=== PATIENT | female | born 2000 | race Native Hawaiian/Other Pacific Islander ===

== ENCOUNTER 2020-02-07 21:22 | Inpatient (IN) | payer OTHER ==
[~2020-02-07] VITALS: Ht 144.8 cm; Wt 39.9 kg
[2020-02-07] MEDS: OLANZapine ORAL DISINTEGRATING TAB 5MG PO SCH (21:00)
[2020-02-07] MEDS ORDERED: MOM 30ML SUSPENSION UDC PO PRN (23:45)
[2020-02-07] MEDS ORDERED: ACETAMINOPHEN TAB 650MG DOSE (2X325MG) PO PRN (23:45)
[2020-02-07] MEDS ORDERED: MAALOX 30 ML SUSP *UDC PO PRN (23:45)
[2020-02-08 02:34] VITALS: BP 114/63
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
[2020-02-08 15:15] LABS: HEMATOCRIT 38.9 % (36.0-47.0); MEAN CORPUSCULAR HEMOGLOBIN 28.7 pg (27.0-33.0); MEAN CORPUSCULAR HGB CONC 33.4 g/dl (32.0-36.5); MEAN CORPUSCULAR VOLUME 85.9 fl (80.0-96.0); PLATELET COUNT, AUTOMATED 264 10^3/uL (150-450); RED BLOOD COUNT 4.53 10^6/uL (4.00-5.40); WHITE BLOOD COUNT 6.7 10^3/uL (4.0-10.0)
[2020-02-08 15:35] LABS: ALBUMIN 3.8 GM/DL (3.2-5.2); ALT/SGPT 20 U/L (12-78); BILIRUBIN,TOTAL 0.4 MG/DL (0.2-1.0); BLOOD UREA NITROGEN 5 MG/DL (7-18); CALCIUM LEVEL 8.7 MG/DL (8.5-10.1); CARBON DIOXIDE LEVEL 29 MEQ/L (21-32); CHLORIDE LEVEL 104 MEQ/L (98-107); CREATININE FOR GFR 0.62 MG/DL (0.55-1.30); GLUCOSE, FASTING 80 MG/DL (70-100); POTASSIUM SERUM 3.6 MEQ/L (3.5-5.1); SODIUM LEVEL 141 MEQ/L (136-145); TOTAL PROTEIN 7.7 GM/DL (6.4-8.2)
[2020-02-08 15:53] VITALS: BP 113/56
[2020-02-08] MEDS: OLANZapine ORAL DISINTEGRATING TAB 5MG PO SCH (22:21)
[2020-02-09 06:37] VITALS: BP 96/58
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
[2020-02-09] MEDS: ARIPiprazole 2 MG TAB PO SCH (15:28)
[2020-02-09 16:37] VITALS: BP 109/71
[2020-02-09 18:11] LABS: CHLAMYDIA DNA AMPLIFICATION POSITIVE (NEGATIVE); GC DNA AMPLIFICATION NEGATIVE (NEGATIVE)
--- NOTE | 2020-02-09 19:04 | IPNPDOC ---
Date Seen The patient was seen on 02/09/20. Progress Note SUBJECTIVE: Patient's UA neg; however, had continued burning with urination. Patient admits to her boyfriend not being monogamous and so the risk for STD is present. Checked GC and trichomonas in urine. + for chlamydia. Treating with one time dose of azithromycin 1 gm PO. VS, I&O, 24H, Fishbone Vital Signs/I&O Vital Signs Date Time Temp Pulse Resp B/P (MAP) Pulse Ox O2 Delivery O2 Flow Rate FiO2 02/09/20 16:37 98.8 89 16 109/71 (84) 02/09/20 06:37 100 Room Air Laboratory Data 24H LABS Laboratory Tests 2 02/09/20 15:30: Chlamydia trachomatis DNA (MARY JO) POSITIVEH, Neisseria gonorrhoeae DNA (MARY JO) NEGATIVE, Trichomonas vaginalis (PCR) NOT DETECTED Microbiology Microbiology 02/08/20 Urine Culture - Final, Complete Coco Beal MD Feb 09, 2020 19:04
[2020-02-09] MEDS ORDERED: AZITHROMYCIN 250MG TABLET PO ONE (20:00)
--- NOTE | 2020-02-09 20:59 | MHIPN ---
DATE: 02/09/2020 The patient is seen via telepsychiatry due to current coronavirus crisis. Today, the patient tells me that she is feeling "better." She tells me that she was feeling very anxious yesterday in the unit because other patients were saying that they wanted to leave because they were afraid that they were going to get hurt because there were some patients that were agitated on the unit. The patient continues to minimize her psychotic symptoms, but she also describes that she had been having increased energy, pressured speech, flight of ideas. She does have a history of depression in the past, and I think it is possible that maybe what she has been having is a manic episode. MENTAL STATUS EXAM: This patient is alert and oriented times three. Eye contact is fair. Psychomotor activity is normal. There is a mild pressured speech. I did not elicit any suicidal or homicidal ideations. The patient, I believe, still has some mild paranoid thoughts. There is no formal thought disorder noted. Her concentration is fair. Memory intact. She is not homicidal or suicidal. Concentration is fair. Insight and judgment is fair. DIAGNOSIS: Bipolar disorder. TREATMENT PLAN: We will continue to monitor for continued resolution of psychotic symptoms and we will continue to titrate medications as needed. THOMASD
[2020-02-09] MEDS: traZODone 50 MG TAB PO PRN (21:08)
[2020-02-10 06:41] VITALS: BP 113/56
[2020-02-10] MEDS: ARIPiprazole 2 MG TAB PO SCH (08:26)
[2020-02-10 16:27] VITALS: BP 118/56
[2020-02-11] MEDS: traZODone 50 MG TAB PO PRN (01:08)
[2020-02-11 06:26] VITALS: BP 111/58
[2020-02-11] MEDS: ARIPiprazole 2 MG TAB PO SCH ×2 (08:27→20:21)
--- NOTE | 2020-02-11 09:23 | MHIPNPDOC ---
[facility] Progress Note Progress Note DATE OF SERVICE: 02/11/20 HPI: Jessica presents today for a follow-up on her medications. She denies having any shakiness, jitteriness, and tremors besides when she is cold. She also denies having any suicidal thoughts, homicidal thoughts, and hearing voices. She mentions having bowel changes. She is sometimes constipated due to Abilify. MEDICATIONS: She is currently taking Abilify and states that it is helping. However, the medication makes her drowsy during the day so she is requesting to change the time she takes the medication to night time. She mentions that she takes naps more frequently during the day and would rather sleep better at night instead. The Abilify is stabilizing her anxiety and compulsions. She notices changes in her responses to others. Objective Appearance: Well groomed. Well nourished. Speech: pressured speech. mildly psychotic. Cognition: grossly intact with some problems in concentration and secondary to thought process. Thought Form: generally linear although tangential at times. Judgement: poor. Insight: poor. Assessment F41.9 Anxiety disorder, unspecified F31.0 Bipolar disorder, current episode hypomanic Plan She is a 19-year-old woman with a history of likely bipolar disorder. She is currently being treated with Abilify and I will move the Abilify 2 mg to night. Ideally, I would like to increase but we will see how she responds to the low dose at night to stabilize her sleep. She is still quite distorted per nursing staff, especially with sexual preoccupations. She will likely need further inpatient admission. Vital Signs Vital Signs Date Time Temp Pulse Resp B/P (MAP) Pulse Ox O2 Delivery O2 Flow Rate FiO2 02/11/20 06:26 97.7 90 12 111/58 (75) Room Air 02/09/20 06:37 100 Current Medications Current Medications Medications (Trade) Dose Ordered Sig/Roxane Route PRN Reason Start Time Stop Time Status Last Admin Dose Admin Acetaminophen (Tylenol Tab) 650 mg Q6HP PRN PO HEADACHE or DISCOMFORT 02/07/20 23:45 Al Hydrox/Mg Hydrox/Simethicone (Mylanta) 30 ml Q4HP PRN PO HEARTBURN/INDIGESTION 02/07/20 23:45 Aripiprazole (AbiLIFY) 2 mg DAILY PO 02/09/20 09:00 02/11/20 08:27 Home Med (Med Rec Complete!) ASDIRECTED XX 02/07/20 23:30 02/07/20 23:29 DC Magnesium Hydroxide (Milk Of Magnesia) 30 ml DAILYPRN PRN PO CONSTIPATION 02/07/20 23:45 Olanzapine (ZyPREXA ZYDIS) 10 mg QHS PO 02/07/20 21:00 02/09/20 14:59 DC 02/08/20 22:21 Trazodone HCl (Desyrel) 50 mg QHSP PRN PO INSOMNIA 02/07/20 23:45 02/11/20 01:08 Allergies Coded Allergies: No Known Allergies (Unverified , 02/07/20) JOSELINE PARRY DO Feb 11, 2020 09:22
[2020-02-11] MEDS ORDERED: SENNA 8.6 MG TAB (SENOKOT) PO PRN (10:15)
--- NOTE | 2020-02-11 15:20 | MHIPN ---
DATE: 02/10/2020 The patient is seen via telepsychiatry due to the current coronavirus crisis. The patient today tells me that she is doing good. She says she slept good. She says that she is feeling less anxious today. She said some of the other patients are still saying that they are afraid to be in the unit, that they are afraid that they are going to get killed. She says that she recognizes that other patients have their own problems that they are dealing with. She really feels that the Abilify is helping stabilize her thoughts. MENTAL STATUS EXAMINATION: She is alert and oriented times three. Eye contact is fairly good. She is verbally spontaneous. There is no formal thought disorder noted. Mood is "better." Affect full range and appropriate to mood. She is not suicidal, homicidal. I am not eliciting any delusions today. Concentration is fair, memory intact. Insight and judgment good DIAGNOSES: 1. Bipolar disorder. 2. Posttraumatic stress disorder. 3. Cannabis use disorder, severe. TREATMENT PLAN: At this point, we will continue to monitor the patient for continued resolution of her psychotic symptoms and stabilization of her mood. We will continue the current medications, and we will continue to titrate her Abilify as needed. ZULEYKA
[2020-02-11 16:27] VITALS: BP 116/62
[2020-02-11] MEDS ORDERED: ARIPiprazole 2 MG TAB PO SCH (21:00)
[2020-02-12] MEDS: traZODone 50 MG TAB PO PRN ×2 (01:56→20:46)
[2020-02-12 06:19] VITALS: BP 123/66
--- NOTE | 2020-02-12 09:47 | MHIPNPDOC ---
[facility] Progress Note Progress Note DATE OF SERVICE: 02/12/20 HPI: Jessica presents today for concerns regarding her follow up. Jessica denies any suicidal thoughts or homicidal thoughts as well as any hallucinations. Jessica is open to getting discharged tomorrow.staff report the patient is euthymic without any signs of psychosis at this time. MEDICATIONS: She is taking abilify. She likes it at night, and she does not feel as groggy as she would if she takes it in the morning. She does feel like her body is sore. Objective Appearance: Well groomed. Well nourished. Behavior: Engaged. Cooperative with good eye contact. Pleasant. Affect: Full range. Appropriate to context. Mood: Generally good. Appropriately reactive. Euthymic. Speech: Normal volume. Normal rate. Motor: No gross motor abnormalities. Cognition: Alert, Attentive, and Oriented to person, place, time. Memory: No gross abnormalities of short or long term acute care registered nurse memory noted during interview. No formal testing. Thought Form: Linear and goal directed. Thought Content: No thoughts of self harm. No evidence of aggressive or homicidal ideation. No evidence of suicidal ideation. No evidence of delusions. Perception: No perceptual abnormalities noted. Judgement: intact as evidenced by decision making in the recent past. Insight: good insight into symptoms and treatment options. Assessment F31.72 Bipolar disorder, in full remission, most recent episode hypomanic F43.10 Post-traumatic stress disorder, unspecified F12.90 Cannabis use, unspecified, uncomplicated Plan Continue abilify 5 mg. At this time patient will be discharged tomorrow patient is doing well and making stronger progress Vital Signs Vital Signs Date Time Temp Pulse Resp B/P (MAP) Pulse Ox O2 Delivery O2 Flow Rate FiO2 02/12/20 06:19 97.8 95 12 123/66 (85) Room Air 02/09/20 06:37 100 Current Medications Current Medications Medications (Trade) Dose Ordered Sig/Roxane Route PRN Reason Start Time Stop Time Status Last Admin Dose Admin Acetaminophen (Tylenol Tab) 650 mg Q6HP PRN PO HEADACHE or DISCOMFORT 02/07/20 23:45 Al Hydrox/Mg Hydrox/Simethicone (Mylanta) 30 ml Q4HP PRN PO HEARTBURN/INDIGESTION 02/07/20 23:45 Aripiprazole (AbiLIFY) 2 mg DAILY PO 02/09/20 09:00 02/11/20 10:11 DC 02/11/20 08:27 Aripiprazole (AbiLIFY) 2 mg QHS PO 02/11/20 21:00 02/11/20 20:21 Aripiprazole (AbiLIFY) 5 mg QHS PO 02/11/20 21:00 02/11/20 10:13 DC Home Med (Med Rec Complete!) ASDIRECTED XX 02/07/20 23:30 02/07/20 23:29 DC Magnesium Hydroxide (Milk Of Magnesia) 30 ml DAILYPRN PRN PO CONSTIPATION 02/07/20 23:45 Olanzapine (ZyPREXA ZYDIS) 10 mg QHS PO 02/07/20 21:00 02/09/20 14:59 DC 02/08/20 22:21 Senna (Senokot) 1 tab DAILYPRN PRN PO CONSTIPATION 02/11/20 10:15 Trazodone HCl (Desyrel) 50 mg QHSP PRN PO INSOMNIA 02/07/20 23:45 02/12/20 01:56 Allergies Coded Allergies: No Known Allergies (Unverified , 02/07/20) JOSELINE PARRY DO Feb 12, 2020 09:47
[2020-02-12 16:30] VITALS: BP 120/73
[2020-02-12] MEDS: ARIPiprazole 2 MG TAB PO SCH (20:46)
[2020-02-13 06:44] VITALS: BP 114/63
--- NOTE | 2020-02-13 09:23 | MHDSPDOC ---
[facility] Discharge Summary Discharge Summary DATE OF ADMISSION: Feb 07, 2020 at 23:43 DATE OF DISCHARGE: Feb 13, 2020 at 13:09 DISCHARGE DIAGNOSES: See Problem list below REASON FOR ADMISSION: 19-year-old woman admitted for bizarre and psychotic symptoms CONSULTANTS INVOLVED:[ None (basic hospitalist screening)] TREATMENT AND PROGRESS ON THE UNIT : Medication changes: start on Abilify 2 mg nightly with positive effects, bizarreness and paranoia vanished quite quickly Behavior on unit: initially bizarre but became more friendly and amenable Treatment attendance: attended well as she improved Notable issues on presentation: none State on discharge: [improved] DISCHARGE ASSESSMENT: The patient a 19 year old woman, with likely initial psychotic episode, presented to [facility], where they a treated with appropriate agent and resolved well. Legal status considerations: The patient at the time of discharge did not meet criteria for involuntary admission/extension due to having a [normal] mental status exam, [fair] insight into the situation, They are engaged in the discharge process, as well as being friendly and amenable in behavioral control and havent been engaging in any observed concerning behavior or ideation recently. They decline voluntary extension/admission at this time and must be discharged in [place], as Im unable to make a case for holding the patient against their will. They may have historical risk factors of admissions and other interactions with psychiatry however, those are not modifiable from a clinical perspective. The patient will need to be discharged in [place]. MENTAL STATUS EXAMINATION ON DISCHARGE: [General: Well dressed with good hygiene Speech: Spontaneous and fluid Thought processes: Linear and logical Thought content: Future orientated Abstract reasoning, and computation: Intact Description of associations: Intact Description of abnormal or psychotic thoughts:Denies any suicidal or homicidal ideation. Denies any auditory or visual hallucinations. Does not appear to be responding to internal stimuli. Does not appear to be endorsing any bizarre or paranoid ideation. Judgment: fair Insight: fair Orientation: Alert and orientated 3 Recent and remote memory: Intact Attention span and concentration: Intact Fund of knowledge: Adequate Mood: "okay" Affect: Euthymic with a full range] PLAN/FOLLOWUP ARRANGEMENTS: Follow up appointments made (PCP and MH in 5 days of D/C date) and safety plan completed. Safety Planning aspects completed prior to discharge [Medication supplies limited to 7 days with 4 refills to prevent accumulation to OD] [Family contact completed, educated on safe practices, instructed on removal and mitigation of dangerous means] [RN reviewed crisis hotline information and other aspects to empower patient to access care in interim before next appointment.] The amount of time spent in the coordination of care for this patient was approximately 30 minutes. Vital Signs/I&Os Vital Signs Date Time Temp Pulse Resp B/P (MAP) Pulse Ox O2 Delivery O2 Flow Rate FiO2 02/13/20 06:44 97.7 97 16 114/63 (80) 100 Room Air Laboratory Data Microbiology Microbiology 02/08/20 Urine Culture - Final, Complete Medications Scheduled Aripiprazole (Abilify) 2 Mg Tablet, 2 MG PO QHS for mood for 7 Days, #7 Allergies Coded Allergies: No Known Allergies (Unverified , 02/07/20) Problems (1) Psychotic disorder Status: Resolved Plan / VTE VTE Prophylaxis Ordered?: No JOSELINE PARRY DO Feb 13, 2020 09:23
[2020-02-13] MEDS ORDERED: ABIL1TAB13 PO (09:48)
== END 2020-02-13 13:09 | disposition home or self-care (01) | DRG 751 ==
LOC: M ED 21:22 → M ED INP 23:43 → M PSY 02-08 02:31
PROVIDERS: ADMIT Psychiatry & Neurology Psychiatry; ATTEND Psychiatry & Neurology Addiction Medicine
DX: F29 Unspecified psychosis not due to a substance or known physiological condition (principal); R45.851 Suicidal ideations; F41.9 Anxiety disorder, unspecified; R30.0 Dysuria; A56.8 Sexually transmitted chlamydial infection of other sites